=== PATIENT | male | born 1945 | race Caucasian/White ===

== ENCOUNTER 2018-08-29 07:45 | Inpatient (IN) | payer MEDICARE, OTHER ==
[~2018-08-29] VITALS: Ht 198.1 cm; Wt 111.4 kg
[~2018-08-29 07:45] MED LIST: ASPI81 PO; BACL10TA PO; FINA5TAB41 PO; IBUP-2077 PO; LISI-660 PO; METO50 PO; NORCO 5-325 PO; RINGERS SOLUTION,LACTATED 1,000 ML IV ONE; TAMS0.4C32 PO
[2018-08-29] MEDS ORDERED: ACETAMINOPHEN 1000 MG/ISO-OSM 100 ML IV ONE (08:17)
[2018-08-29] MEDS ORDERED: PROPOFOL 1000 MG/ISO-OSM 100 ML IV ONE (08:18)
[2018-08-29] MEDS ORDERED: BUPIVACAINE HCL/DEX-WATER/PF 0.75% 2 ML AMP ONE (08:19)
[2018-08-29 08:25] LABS: BASOPHILS % (AUTO) 0.7 % (0.0-2.0); EOSINOPHILS % (AUTO) 4.9 % (1.0-6.0); HEMATOCRIT 41.9 % (41-53); LYMPHOCYTES # (AUTO) 1.6 K/uL (1.0-4.8); LYMPHOCYTES % (AUTO) 24.1 % (22.0-44.0); MEAN CORPUSCULAR HEMOGLOBIN 32.9 pg (26.0-34.0); MEAN CORPUSCULAR HGB CONC 33.4 G/dL (31.0-37.0); MEAN CORPUSCULAR VOLUME 99 fL (80-100); MONOCYTES # (AUTO) 0.7 K/uL (0.1-1.0); MONOCYTES % (AUTO) 10.5 % (2.0-9.0); NEUTROPHILS % (AUTO) 59.8 % (40.0-70.0); PLATELET COUNT (AUTO) 166 K/uL (150-450); RED BLOOD CELL COUNT(AUTO) 4.26 MIL/uL (4.50-5.90); RED CELL DISTRIBUTION WIDTH 15.5 % (11.5-14.5)
[2018-08-29] MEDS ORDERED: TRANEXAMIC ACID 1,000 MG in DEXTROSE 5%-WATER 50 ML IV ONE (08:30)
[2018-08-29] MEDS ORDERED: BUPIVACAINE LIPOSOME/PF 1.3%-13.3MG/ML SUSPENSION 20 ML VIAL INJ ONE (08:30)
[2018-08-29] MEDS ORDERED: BACITRACIN 50,000 UNITS/VIAL ONE ×2 (08:33→11:11)
[2018-08-29 08:35] LABS: INR 1.1 (0.9-1.1); PROTHROMBIN TIME 11.1 SEC (9.4-11.6)
[2018-08-29 08:45] LABS: ANION GAP 6 mmol/L (8-16); CALCIUM, TOTAL 8.4 mg/dL (8.8-10.5); CARBON DIOXIDE 32 mmol/L (22-29); CHLORIDE 105 mmol/L (98-107); CREATININE 0.93 mg/dL (0.60-1.30); GLUCOSE,RANDOM 91 mg/dL (70-110); POTASSIUM 3.9 mmol/L (3.5-5.1); SODIUM SERUM 143 mmol/L (136-145); UREA NITROGEN, BLOOD 12 mg/dL (7-18)
[2018-08-29 08:48] LABS: B-TYPE NATRIURETIC PEPTIDE 313 pg/mL (0-100); GLOMERULAR FILTR. RATE CALC > 60 mL/min (>60)
[2018-08-29] MEDS ORDERED: RINGERS SOLUTION,LACTATED 1,000 ML IV ONE (10:38)
[2018-08-29] MEDS ORDERED: SODIUM CHLORIDE 0.9% 50 ML ONE (10:51)
[2018-08-29] MEDS ORDERED: SODIUM CL IRRIG SOLN BAG 3,000 ML IRRIG ONE (11:11)
[2018-08-29] MEDS ORDERED: OxyCODONE HCL/ACETAMINOPHEN 10-325 MG TABLET PO PRN (11:15)
[2018-08-29] MEDS ORDERED: CYCLOBENZAPRINE HCL 10 MG TABLET PO PRN (11:15)
[2018-08-29] MEDS ORDERED: HYDROmorphone 2 MG/ML SYRINGE IVP PRN (11:15)
[2018-08-29] MEDS ORDERED: FentaNYL CITRATE-PF 100 MCG/2 ML VIAL IVP STA (11:40)
[2018-08-29] MEDS ORDERED: FentaNYL CITRATE-PF 100 MCG/2 ML VIAL ONE (11:43)
[2018-08-29] MEDS ORDERED: BISACODYL 10 MG RECTAL RECTAL SUPPOSITORY PR PRN (11:45)
[2018-08-29] MEDS ORDERED: ZOLPIDEM TARTRATE 10 MG TABLET PO PRN (11:45)
[2018-08-29] MEDS ORDERED: ONDANSETRON HCL 4 MG/2 ML VIAL IVP PRN (11:45)
[2018-08-29] MEDS ORDERED: MAG HYDROX/AL HYDROX/SIMETH 30 ML SUSP UDCUP PO PRN (11:45)
[2018-08-29] MEDS ORDERED: DiphenhydrAMINE HCL 50 MG/ML VIAL IVP PRN (11:45)
[2018-08-29] MEDS ORDERED: EPHEDrine SULFATE 50 MG/ML VIAL IM ONE (12:00)
[2018-08-29] MEDS ORDERED: PROPOFOL 1% 20 ML VIAL IVP ONE (12:00)
[2018-08-29] MEDS ORDERED: MIDAZOLAM HCL 2 MG/2 ML VIAL IVP ONE (12:00)
[2018-08-29] MEDS ORDERED: ONDANSETRON HCL 4 MG/2 ML VIAL IVP ONE (12:00)
[2018-08-29] MEDS ORDERED: DEXAMETHASONE SOD PHOS 4 MG/ML VIAL IVP ONE (12:00)
[2018-08-29] MEDS ORDERED: LIDOCAINE/PF 2% 5 ML VIAL INJ ONE (12:00)
[2018-08-29] MEDS ORDERED: KETAMINE HCL 50 MG/ML 10 ML VIAL IVP ONE (12:00)
[2018-08-29] MEDS ORDERED: KETOROLAC TROMETHAMINE 60 MG/2 ML VIAL IM ONE (12:00)
[2018-08-29] MEDS ORDERED: BUPIVACAINE HCL/PF 0.5% 30 ML VIAL ONE (12:13)
[2018-08-29 14:07] VITALS: BP 149/100
[2018-08-29] MEDS ORDERED: MAGNESIUM HYDROXIDE SUSPENSION 30 ML UDCUP PO PRN (15:00)
[2018-08-29 15:48] VITALS: BP 136/88
[2018-08-29] MEDS: DEXTROSE 5%-LACTATED RINGERS 1,000 ML IV SCH (15:59)
[2018-08-29] MEDS: ACETAMINOPHEN 500 MG TABLET PO SCH ×2 (16:01→22:13)
[2018-08-29] MEDS: CeFAZolin 1 GM/DEXTROSE 50 ML IV SCH (17:50)
[2018-08-29] MEDS: KETOROLAC TROMETHAMINE 15 MG/ML VIAL IVP SCH (17:51)
[2018-08-29 19:30] VITALS: BP 123/65
[2018-08-29] MEDS: ATORVASTATIN CALCIUM 20 MG TABLET PO SCH (20:42)
[2018-08-29] MEDS: DOCUSATE SODIUM 100 MG CAPSULE PO SCH (20:42)
[2018-08-29] MEDS: FAMOTIDINE 20 MG TABLET PO SCH (20:43)
[2018-08-29] MEDS: METOPROLOL TARTRATE 25 MG TABLET PO SCH (20:43)
[2018-08-29] MEDS: TAMSULOSIN HCL 0.4 MG CAPSULE PO SCH (20:43)
[2018-08-29] MEDS: OXYGEN THERAPY IH SCH (20:44)
[2018-08-29] MEDS ORDERED: DOCUSATE SODIUM 100 MG CAPSULE PO SCH (21:00)
[2018-08-29 23:23] VITALS: BP 107/68
[2018-08-30] MEDS: KETOROLAC TROMETHAMINE 15 MG/ML VIAL IVP SCH ×5 (00:43→23:42)
[2018-08-30] MEDS: CeFAZolin 1 GM/DEXTROSE 50 ML IV SCH (01:24)
[2018-08-30] MEDS: ACETAMINOPHEN 500 MG TABLET PO SCH ×4 (03:30→20:46)
[2018-08-30 04:39] VITALS: BP 125/63
[2018-08-30 06:33] LABS: BASOPHILS % (AUTO) 0.1 % (0.0-2.0); EOSINOPHILS % (AUTO) 0 % (1.0-6.0); HEMATOCRIT 31.2 % (41-53); HEMOGLOBIN 10.5 g/dL (13.5-17.5); LYMPHOCYTES # (AUTO) 1.1 K/uL (1.0-4.8); LYMPHOCYTES % (AUTO) 8.3 % (22.0-44.0); MEAN CORPUSCULAR HEMOGLOBIN 33.2 pg (26.0-34.0); MEAN CORPUSCULAR HGB CONC 33.6 G/dL (31.0-37.0); MEAN CORPUSCULAR VOLUME 99 fL (80-100); MONOCYTES % (AUTO) 7.9 % (2.0-9.0); NEUTROPHILS # (AUTO) 11.1 K/uL (1.8-7.7); NEUTROPHILS % (AUTO) 83.7 % (40.0-70.0); PLATELET COUNT (AUTO) 153 K/uL (150-450); RED BLOOD CELL COUNT(AUTO) 3.16 MIL/uL (4.50-5.90); RED CELL DISTRIBUTION WIDTH 15.8 % (11.5-14.5)
[2018-08-30 06:42] LABS: CREATININE 1.36 mg/dL (0.60-1.30); POTASSIUM 4.1 mmol/L (3.5-5.1)
[2018-08-30] MEDS: DEXTROSE 5%-LACTATED RINGERS 1,000 ML IV SCH (06:46)
[2018-08-30] MEDS: OXYGEN THERAPY IH SCH ×2 (08:00→20:00)
[2018-08-30] MEDS: FAMOTIDINE 20 MG TABLET PO SCH ×2 (08:29→20:45)
[2018-08-30] MEDS: METOPROLOL TARTRATE 25 MG TABLET PO SCH ×2 (08:29→20:45)
[2018-08-30] MEDS: DOCUSATE SODIUM 100 MG CAPSULE PO SCH ×2 (08:29→20:45)
[2018-08-30] MEDS: LISINOPRIL 5 MG TABLET PO SCH (08:29)
[2018-08-30 08:35] VITALS: BP 110/56
[2018-08-30] MEDS ORDERED: RIVAROXABAN 10 MG TABLET PO SCH (10:00)
[2018-08-30 12:07] VITALS: BP 97/50
[2018-08-30 16:00] VITALS: BP 121/57
[2018-08-30] MEDS: FERROUS SULFATE 325 MG EC TABLET PO SCH (17:32)
[2018-08-30 19:25] VITALS: BP 101/53
[2018-08-30] MEDS: TAMSULOSIN HCL 0.4 MG CAPSULE PO SCH (20:45)
[2018-08-30] MEDS: ATORVASTATIN CALCIUM 20 MG TABLET PO SCH (20:46)
[2018-08-30 21:05] LABS: APPEARANCE,URINE CLOUDY (CLEAR); GLUCOSE, URINE (UA) NEGATIVE (NEGATIVE); KETONES,URINE TRACE mg/dL (NEGATIVE); LEUKOCYTE ESTERASE ,URINE NEGATIVE (NEGATIVE); NITRATE,URINE NEGATIVE (NEGATIVE); OCCULT BLOOD,URINE SMALL (NEGATIVE); PROTEIN,URINE NEGATIVE (NEGATIVE); UROBILINOGEN,URINE 0.2 mg/dL (<=1.0)
[2018-08-30 21:06] LABS: BILIRUBIN,URINE PRELIM. POSITIVE (NEGATIVE)
[2018-08-30 21:15] LABS: BACTERIA,URINE Rare /HPF (None Seen); WBC,URINE 0-2 /HPF (0-5)
[2018-08-30 21:16] LABS: CALCIUM OXALATE CRYSTALS,UR Few /LPF (None Seen); FINE GRANULAR CASTS,URINE 0-2 /LPF (None Seen); SQUAMOUS EPITHELIAL CELL,UR Rare /LPF (None Seen)
[2018-08-30 23:48] VITALS: BP 136/64
[2018-08-31] MEDS: ACETAMINOPHEN 500 MG TABLET PO SCH ×2 (03:15→10:32)
[2018-08-31 03:20] VITALS: BP 100/54
[2018-08-31] MEDS: KETOROLAC TROMETHAMINE 15 MG/ML VIAL IVP SCH ×2 (05:26→12:10)
[2018-08-31 06:46] LABS: BASOPHILS % (AUTO) 0.3 % (0.0-2.0); EOSINOPHILS % (AUTO) 0.5 % (1.0-6.0); HEMATOCRIT 23.8 % (41-53); HEMOGLOBIN 8.1 g/dL (13.5-17.5); LYMPHOCYTES # (AUTO) 1.4 K/uL (1.0-4.8); LYMPHOCYTES % (AUTO) 15.8 % (22.0-44.0); MEAN CORPUSCULAR HEMOGLOBIN 33.3 pg (26.0-34.0); MEAN CORPUSCULAR VOLUME 98 fL (80-100); MONOCYTES # (AUTO) 1.1 K/uL (0.1-1.0); MONOCYTES % (AUTO) 11.9 % (2.0-9.0); NEUTROPHILS # (AUTO) 6.4 K/uL (1.8-7.7); NEUTROPHILS % (AUTO) 71.5 % (40.0-70.0); PLATELET COUNT (AUTO) 122 K/uL (150-450); RED BLOOD CELL COUNT(AUTO) 2.44 MIL/uL (4.50-5.90)
[2018-08-31 08:10] VITALS: BP 114/46
[2018-08-31] MEDS ORDERED: ASPIRIN 81 MG CHEWABLE TABLET PO SCH (09:00)
[2018-08-31] MEDS: LISINOPRIL 5 MG TABLET PO SCH (09:47)
[2018-08-31] MEDS: FERROUS SULFATE 325 MG EC TABLET PO SCH (09:48)
[2018-08-31] MEDS: FAMOTIDINE 20 MG TABLET PO SCH (09:48)
[2018-08-31] MEDS: METOPROLOL TARTRATE 25 MG TABLET PO SCH (09:48)
[2018-08-31] MEDS: DOCUSATE SODIUM 100 MG CAPSULE PO SCH (09:48)
[2018-08-31 12:22] VITALS: BP 100/54
[2018-08-31] MEDS ORDERED: FERR-89 PO (12:33)
[2018-08-31] MEDS ORDERED: PERCT PO (12:34)
[2018-08-31 16:18] VITALS: BP 109/58
== END 2018-08-31 16:50 | disposition home or self-care (01) | DRG 470 ==
LOC: 4E 07:45
PROVIDERS: ADMIT Orthopaedic Surgery; ATTEND Orthopaedic Surgery
PROC: 0SRB03A Replacement of Left Hip Joint with Ceramic Synthetic Substitute, Uncemented, Open Approach (ICD-10-PCS; principal; 2018-08-29 09:00)
DX: M16.12 Unilateral primary osteoarthritis, left hip (principal); I25.10 Atherosclerotic heart disease of native coronary artery without angina pectoris; D64.9 Anemia, unspecified; Z95.1 Presence of aortocoronary bypass graft; Z79.82 Long term (current) use of aspirin; Z79.899 Other long term (current) drug therapy
CPT/HCPCS: 72170; 73503; 87081; 88300; 97110; 97116; 97162; 97166; 97530; 97535; C9290; J0131; J0690; J1100; J1885; J2250; J2405; J2704; J3010; J3490; J7050; J7060; J7120